=== PATIENT | male | born 1955 | race Caucasian/White ===

== ENCOUNTER 2016-08-31 02:38 | Emergency (ER) | payer OTHER ==
[2016-08-31] MEDS ORDERED: ONDANSETRON 4 MG/2 ML VIAL ONE (02:48)
[2016-08-31] MEDS ORDERED: NS 1,000 ML IV ONE ×2 (02:56→04:10)
[2016-08-31] MEDS ORDERED: HYDROmorphONE/DILAUDID 1 MG/ML SYR IVP ONE (02:56)
[2016-08-31] MEDS ORDERED: ONDANSETRON 4 MG/2 ML VIAL IVP ONE (02:56)
--- NOTE | 2016-08-31 03:28 | EDPHY ---
H & P Time Seen by Provider: 08/31/16 02:56 HPI/ROS: HPI Diarrhea, left lower abdominal pain. 60-year-old male by private vehicle with his . This patient has a history of diverticulitis. He reports onset of left lower quadrant pain, typical of his previous episodes of diverticulitis earlier yesterday while on a bike ride with his . He reports that he developed volume is, watery diarrhea. No bloody or melenic stool. He reports he has had continued pain in his left lower quadrant and has been unable to sleep. No vomiting. He is not been running a fever. He does describe being generally achy. He has no other complaints. Last meal was some oatmeal prior to coming into the emergency department. ROS: Constitutional: No fever, no chills. No weakness. Eyes: No discharge. No changes in vision. ENT: No sore throat. No nasal congestion or rhinorrhea. Respiratory: No cough. No shortness of breath. Cardiac: No chest pain, no palpitations. Gastrointestinal: As above. Genitourinary: No hematuria. No dysuria or increased frequency with urination. Musculoskeletal: No back pain. No neck pain. As above. Skin: No rashes. Neurological: No headache. No focal weakness or altered sensation. Past medical history: Diverticulitis, internal hemorrhoids. Social history: Here with his . Very physically active. No alcohol. No smoking. Physical Exam: General Appearance: Alert, no distress. This patient is responding to questions appropriately and in full sentences. This patient appears well- hydrated and well-nourished. Eyes: Pupils equal and round no pallor or injection. No lid edema, erythema or injection. Respiratory: There are no retractions, lungs are clear to auscultation with good air movement bilaterally. Cardiovascular: Regular rate and rhythm. No murmur. Gastrointestinal: Abdomen is soft with left lower lateral abdominal tenderness on palpation, no masses, bowel sounds normal. No focal tenderness at McBurney' s point. No Reese sign. Neurological: Motor sensory function is grossly intact. Cranial nerves are normal. Gait is normal. Skin: Warm and dry, no rashes. Musculoskeletal: Neck is supple and nontender. Extremities are symmetrical. All joints range without pain or impingement. Psychiatric: No agitation. No depression. Database: EKG: Imaging: CT scan of the abdomen and pelvis with IV contrast: No diverticulitis. He has diverticulosis. No evidence of abscess. No free fluid or free air. Otherwise an unremarkable study for any acute pathology. Results were discussed with staff radiologist Dr. Harris Lozano. Procedures: Emergency department course: IV placed. He was placed on a monitor. Vital signs reviewed and are normal. He is afebrile. He declines pain medication or antiemetics. He was started on IV normal saline with 1 L to be given over [address] imaging with him. He consents. 4:45 a.m., patient re-evaluated. Resting comfortably at this time. Results of his CT scan and blood work discussed with him. I discussed pain medication. At this time he prefers just Tylenol. I explained that we could not entirely rule out diverticulitis but he did not have evidence of significant disease on CT. Plan will be to send him home with a prescription for both Flagyl and ciprofloxacin. If his pain worsens or he spikes a fever he will start this medication. I discussed follow-up with his primary care physician tomorrow for re-evaluation. Return to emergency department precautions were thoroughly reviewed with him and his . All of their questions were answered. He was discharged in good condition. Differential Diagnosis: The differential diagnosis on this patient includes but is not limited to diverticulitis, colitis, irritable bowel syndrome. Volvulus, gastrointestinal bleeding, acute surgical process unlikely. This represents a partial list of diagnoses considered. These considerations are based on history, physical exam , past history, reassessment and diagnostic testing. Smoking Status: Never smoked Constitutional: Initial Vital Signs Temperature (C) 36.4 C 08/31/16 02:52 Heart Rate 81 08/31/16 02:52 Respiratory Rate 20 08/31/16 02:52 Blood Pressure 111/84 H 08/31/16 02:52 O2 Sat (%) 95 08/31/16 02:52 O2 Delivery Mode Room Air Allergies/Adverse Reactions: amoxicillin Allergy (Verified 08/31/16 02:51) cats Allergy (Uncoded 08/31/16 02:51) Home Medications: Medication Instructions Recorded Lipitor 03/11/13 Ciprofloxacin [Cipro] 500 mg PO BID #14 tab 08/31/16 metroNIDAZOLE [Flagyl 500 mg (*)] 500 mg PO TID #21 tab 08/31/16 Medical Decision Making - Data Points Laboratory Results: Laboratory Results 08/31/16 02:50 08/31/16 02:50 08/31/16 08/31/16 08/31/16 04:30 02:50 02:50 WBC 8.26 10^3/uL 10^3/uL (3.80-9.50) RBC 5.23 10^6/uL 10^6/uL (4.40-6.38) Hgb 16.2 g/dL g/dL (13.7-17.5) Hct 45.9 % % (40.0-51.0) MCV 87.8 fL fL (81.5-99.8) MCH 31.0 pg pg (27.9-34.1) MCHC 35.3 g/dL g/dL (32.4-36.7) RDW 13.1 % % (11.5-15.2) Plt Count 67 10^3/uL L 10^3/uL (150-400) MPV 10.8 fL fL (8.7-11.7) Neut % (Auto) 71.5 % % (39.3-74.2) Lymph % (Auto) 17.1 % % (15.0-45.0) [place] % (Auto) 9.6 % % (4.5-13.0) Eos % (Auto) 1.1 % % (0.6-7.6) Baso % (Auto) 0.5 % % (0.3-1.7) Nucleat RBC Rel Count 0.0 % % (0.0-0.2) Absolute Neuts (auto) 5.91 10^3/uL 10^3/uL (1.70-6.50) Absolute Lymphs (auto) 1.41 10^3/uL 10^3/uL (1.00-3.00) Absolute Monos (auto) 0.79 10^3/uL 10^3/uL (0.30-0.80) Absolute Eos (auto) 0.09 10^3/uL 10^3/uL (0.03-0.40) Absolute Basos (auto) 0.04 10^3/uL 10^3/uL (0.02-0.10) Absolute Nucleated RBC 0.00 10^3/uL 10^3/uL (0-0.01) Immature Gran % 0.2 % % (0.0-1.1) Immature Gran # 0.02 10^3/uL 10^3/uL (0.00-0.10) Sodium 137 mEq/L mEq/L (134-144) Potassium 4.1 mEq/L mEq/L (3.5-5.2) Chloride 103 mEq/L mEq/L (97-110) Carbon Dioxide 21 mEq/l L mEq/l (22-31) Anion Gap 13 mEq/L mEq/L (8-16) BUN 16 mg/dL mg/dL (7-23) Creatinine 0.8 mg/dL mg/dL (0.7-1.3) Estimated GFR > 60 Glucose 85 mg/dL mg/dL (70-100) Calcium 10.0 mg/dL mg/dL (8.5-10.4) Urine Color PALE YELLOW Urine Appearance CLEAR Urine pH 5.0 (5.0-7.5) Ur Specific [place] > 1.035 H (1.002-1.030) Urine Protein NEGATIVE (NEGATIVE) Urine Ketones 1+ H (NEGATIVE) Urine Blood NEGATIVE (NEGATIVE) Urine Nitrate NEGATIVE (NEGATIVE) Urine Bilirubin NEGATIVE (NEGATIVE) Urine Urobilinogen NEGATIVE EU EU (0.2-1.0) Ur Leukocyte Esterase NEGATIVE (NEGATIVE) Urine RBC 5-10 /hpf H /hpf (0-3) Urine WBC 1-3 /hpf /hpf (0-3) Ur Epithelial Cells TRACE /lpf /lpf (NONE-1+) Ur Culture Indicated? NOT INDICATED (NI) Urine Glucose NEGATIVE (NEGATIVE) Medications Given: Discontinued Medications Acetaminophen (Tylenol) 1,000 mg PO EDNOW ONE Stop: 08/31/16 04:30 Last Admin: 08/31/16 04:30 Dose: 1,000 mg Hydromorphone HCl (Dilaudid) 0.25 mg IVP EDNOW ONE Stop: 08/31/16 02:57 Last Admin: 08/31/16 04:58 Dose: Not Given Sodium Chloride (Ns) 1,000 mls @ 0 mls/hr IV ONCE ONE PRN Reason: Wide Open Stop: 08/31/16 02:57 Last Admin: 08/31/16 03:09 Dose: 1,000 mls Sodium Chloride (Ns) 1,000 mls @ 0 mls/hr IV ONCE ONE PRN Reason: Wide Open Stop: 08/31/16 04:11 Last Admin: 08/31/16 04:10 Dose: 1,000 mls Ondansetron HCl (Zofran) 4 mg IVP EDNOW ONE Stop: 08/31/16 02:57 Last Admin: 08/31/16 04:58 Dose: Not Given Departure - Departure Disposition: Home, Routine, Self-Care Clinical Impression: Abdominal pain, left lower quadrant, Diarrhea Condition: Good Instructions: Diverticulitis (ED), Acute Diarrhea (ED) Additional Instructions: Read and follow provided instructions. Follow-up with your primary care physician as discussed later today or tomorrow for re-evaluation. Take antibiotics as prescribed if you develop a fever and your pain if your left lower abdominal pain worsens. Return to the emergency department for worsening pain, fever, bloody stool, vomiting or other serious concerns. Referrals: GIGI WILKINS [Primary Care Provider] - As per Instructions Prescriptions: Ciprofloxacin [Cipro] 500 mg PO BID #14 tab metroNIDAZOLE [Flagyl 500 mg (*)] 500 mg PO TID #21 tab
[2016-08-31 03:29] LABS: % IMMATURE GRANULYOCYTES 0.2 % (0.0-1.1); ABSOLUTE IMMATURE GRANULOCYTES 0.02 10^3/uL (0.00-0.10); ADD DIFF? NO; ADD MORPH? NO; ADD SCAN? NO; ATYPICAL LYMPHOCYTE FLAG 0 (0-99); FRAGMENT RBC FLAG 0 (0-99); HEMATOCRIT 45.9 % (40.0-51.0); HEMOGLOBIN 16.2 g/dL (13.7-17.5); LEFT SHIFT FLG 0 (0-99); LIPEMIA HEMOLYSIS FLAG 90 (0-99); MEAN CELL HEMOGLOBIN CONCENTR. 35.3 g/dL (32.4-36.7); MEAN CELL VOLUME 87.8 fL (81.5-99.8); MEAN PLATELET VOLUME 10.8 fL (8.7-11.7); PLATELET CLUMPS FLAG 0 (0-99); PLATELET COUNT 67 10^3/uL (150-400); RED BLOOD CELL COUNT 5.23 10^6/uL (4.40-6.38); RED CELL DISTRIBUTION WIDTH 13.1 % (11.5-15.2)
[2016-08-31] MEDS ORDERED: IOPAMIDOL (ISOVUE-300) 100 ML BTL IV ONE (03:34)
[2016-08-31 03:40] LABS: ANION GAP 13 mEq/L (8-16); CARBON DIOXIDE 21 mEq/l (22-31); CHLORIDE 103 mEq/L (97-110); CREATININE 0.8 mg/dL (0.7-1.3); GLOMERULAR FILTRATION RATE > 60; GLUCOSE 85 mg/dL (70-100); POTASSIUM 4.1 mEq/L (3.5-5.2); SODIUM 137 mEq/L (134-144)
[2016-08-31] MEDS ORDERED: ACETAMINOPHEN 500 MG TAB ONE (04:05)
[2016-08-31] MEDS ORDERED: ACETAMINOPHEN 500 MG TAB PO ONE (04:29)
[2016-08-31 04:38] VITALS: PULSE 74; RESP 16; TEMP 97.9; O2SAT 92
[2016-08-31 04:49] LABS: COLOR PALE YELLOW; LEUKOCYTE ESTERASE,URINE NEGATIVE (NEGATIVE); NITRITE,URINE NEGATIVE (NEGATIVE)
[2016-08-31 04:59] VITALS: BP 119/77
== END 2016-08-31 04:59 | disposition home or self-care (01) ==
DX: R10.32 Left lower quadrant pain (principal); R19.7 Diarrhea, unspecified
CPT/HCPCS: J2405; Q9967

== ENCOUNTER 2016-08-31 11:49 | Emergency (ER) | payer OTHER ==
[2016-08-31 11:59] VITALS: TEMP 97.5
--- NOTE | 2016-08-31 12:21 | CPEKG ---
Heart Rate: 71 RR Interval: 845 P-R Interval: 172 QRSD Interval: 104 QT Interval: 408 QTC Interval: 444 P [place]: 43 QRS [place]: 22 T Wave [place]: 34 EKG Severity - NORMAL ECG - EKG Impression: SINUS RHYTHM Electronically Signed By: Deanna Gordon 31-Aug-2016 16:31:36
--- NOTE | 2016-08-31 12:29 | EDPHY ---
H & P Stated Complaint: Seen here earlier this am w/diverticulitis;sent by PCP w/ abnl ekg Time Seen by Provider: 08/31/16 12:15 HPI/ROS: CHIEF COMPLAINT: Chest pain HISTORY OF PRESENT ILLNESS: The patient is a 60 year old male who returns to the Emergency Department with chest pain. The patient was seen here last night because of sudden onset of sharp left sided abdominal pain with multiple episodes of diarrhea. This developed while he was biking yesterday afternoon. After taking Imodium and resting he continued to have abdominal pain and felt general malaise with full body aches. Last evening the patient reports feeling anterior chest pain, mid thoracic back pain, and pain in both shoulders. He continued to have intermittent abdominal discomfort. He reports he was unable to sleep secondary to the discomfort in his back. Patient came to the ED and at that time he had CT done that showed diverticulosis and incidental cholelithiasis. He received IV fluids and was discharged home with antibiotics. Patient continues to complain of achy pain and tightness in his chest, with discomfort extending into both shoulders as well as some discomfort in his mid thoracic back. His symptoms have remained constant since onset, but have improved since last night. He denies pain with deep inhalation. No shortness of breath. The patient has not started the antibiotics yet. REVIEW OF SYSTEMS: Aside from elements discussed in the HPI, a comprehensive 10-point review of systems was reviewed and is negative. PAST MEDICAL HISTORY: Diverticulitis. Patient underwent a angioplasty in 2002 clean coronaries. No history of diabetes, hypertension, smoking, or known coronary artery disease. SOCIAL HISTORY: . Nonsmoker. VITAL SIGNS: Reviewed by me GENERAL: Well-developed, well-nourished, resting comfortably in no respiratory distress. HEENT: Atraumatic. Eyes: No icterus, no injection. Mouth: moist mucous membranes. No erythema or lesions. Neck: supple with no adenopathy. LUNGS: Clear to auscultation bilaterally, no wheezes, rhonchi or rales. CARDIAC: Regular rate and rhythm, no rubs, murmurs or gallops. ABDOMEN: Soft, epigastric tenderness to deep palpation. Mild tenderness in left lower quadrant. No right upper quadrant tenderness. No guarding or rebound. No distention. BACK: No CVA tenderness. EXTREMITIES: No trauma. No edema. Range of motion is normal throughout. NEURO: Alert and oriented, grossly nonfocal. SKIN: Warm and dry, no rash. PSYCHIATRIC: Normal mentation, no agitation. Portions of this note were transcribed by a medical claims representative. I personally performed a history, physical exam, medical decision making, and confirmed accuracy of information the transcribed note. Source: Patient - Personal History Current Tetanus Diphtheria and Acellular Pertussis (TDAP): Yes - Medical/Surgical History Hx Asthma: No Hx Chronic Respiratory Disease: No Hx Diabetes: No Hx Cardiac Disease: No Hx Renal Disease: No Hx Cirrhosis: No Hx Alcoholism: No Hx HIV/AIDS: No Hx Splenectomy or Spleen Trauma: No Other PMH: diverticulitis, internal hemorrhoids, - Social History Smoking Status: Never smoked Constitutional: Initial Vital Signs Temperature (C) 36.4 C 08/31/16 11:50 Heart Rate 68 08/31/16 11:50 Respiratory Rate 16 08/31/16 11:50 Blood Pressure 110/67 08/31/16 11:50 O2 Sat (%) 97 08/31/16 11:50 O2 Delivery Mode Room Air Allergies/Adverse Reactions: amoxicillin Allergy (Verified 08/31/16 11:52) cats Allergy (Uncoded 08/31/16 02:51) Home Medications: Medication Instructions Recorded Lipitor 03/11/13 Ciprofloxacin [Cipro] 500 mg PO BID #14 tab 08/31/16 metroNIDAZOLE [Flagyl 500 mg (*)] 500 mg PO TID #21 tab 08/31/16 Medical Decision Making - Diagnostics EKG Interpretation: The 12 lead EKG was interpreted by myself. See hard copy and/or "tracemaster" electronic copy for interpretation: Sinus rhythm. EKG performed at Dr. Wilkins's office demonstrates sinus rhythm with minimal ST elevation diffusely, consistent with early repolerization. Imaging: X-ray: chest was obtained. I viewed the images myself on the PACS system. My interpretation of the images is: Normal. The radiologist interpretation is: No acute disease. I discussed the x-ray findings with the patient. ED Course/Re-evaluation: CBC and chemistry are both normal. Chest x-ray is negative for acute disease. Troponin is negative. Patient's CT scan does demonstrate cholelithiasis with no signs of cholecystitis. Labs today remain normal with a normal white count, no LFT abnormalities and no lipase elevation. Patient has no right upper quadrant discomfort. His troponin is negative despite having reports of diffuse chest discomfort as well as shoulder and back discomfort for greater than 12 hours. EKG today in the emergency department demonstrates no acute ST elevations. Patient received Prilosec in the emergency department. He states that his symptoms have improved significantly. He can take a deep breath without any discomfort. Aching in his chest and shoulders has resolved. Patient had a ddimer ordered despite no risk factors for PE. He is PERC negative. D-dimer is very minimally elevated. I discussed these results with the patient. I believe that in no further evaluation for pulmonary embolism is needed on this particular patient. He understands that if his symptoms were to worsen especially if he develops shortness of breath, worsening chest pain, pleuritic pain, swelling in his legs. He was advised to follow up with Dr. Wilkins for re-evaluation was coronary arteries as needed. Patient understands he should return to the emergency department or seek care urgently if he has worsening symptoms, fever, severe shortness of breath, palpitations, lightheadedness, dizziness, diaphoresis, fainting, nausea or vomiting, or other concerns. Differential Diagnosis: Differential diagnoses for the patient's symptom complex was considered including but not limited to acute coronary syndrome, pleuritic pain, electrolyte abnormality, cholecystitis, biliary colic, reflux. - Data Points Laboratory Results: Laboratory Results 08/31/16 13:05 08/31/16 13:05 08/31/16 08/31/16 08/31/16 14:39 13:08 13:05 WBC RBC Hgb Hct MCV MCH MCHC RDW Plt Count MPV Neut % (Auto) Lymph % (Auto) [place] % (Auto) Eos % (Auto) Baso % (Auto) Nucleat RBC Rel Count Absolute Neuts (auto) Absolute Lymphs (auto) Absolute Monos (auto) Absolute Eos (auto) Absolute Basos (auto) Absolute Nucleated RBC Immature Gran % Immature Gran # D-Dimer 0.64 ug/mLFEU H ug/mLFEU (0.00-0.50) Sodium 138 mEq/L mEq/L (134-144) Potassium 4.5 mEq/L mEq/L (3.5-5.2) Chloride 104 mEq/L mEq/L (97-110) Carbon Dioxide 24 mEq/l mEq/l (22-31) Anion Gap 10 mEq/L mEq/L (8-16) BUN 10 mg/dL mg/dL (7-23) Creatinine 0.7 mg/dL mg/dL (0.7-1.3) Estimated GFR > 60 Glucose 88 mg/dL mg/dL (70-100) Calcium 9.7 mg/dL mg/dL (8.5-10.4) Total Bilirubin 1.2 mg/dL mg/dL (0.1-1.4) Conjugated Bilirubin 0.3 mg/dL mg/dL (0.0-0.5) Unconjugated Bilirubin 0.9 mg/dL mg/dL (0.0-1.1) AST 31 IU/L IU/L (17-59) ALT 43 IU/L IU/L (21-72) Alkaline Phosphatase 61 IU/L IU/L (38-126) Troponin I < 0.012 ng/mL ng/mL (0-0.034) Total Protein 7.4 g/dL g/dL (6.3-8.2) Albumin 4.4 g/dL g/dL (3.5-5.0) Lipase 64.0 IU/L IU/L (23-300) Influenza A & B (PCR) Pending 08/31/16 13:05 WBC 6.59 10^3/uL 10^3/uL (3.80-9.50) RBC 4.98 10^6/uL 10^6/uL (4.40-6.38) Hgb 15.5 g/dL g/dL (13.7-17.5) Hct 44.7 % % (40.0-51.0) MCV 89.8 fL fL (81.5-99.8) MCH 31.1 pg pg (27.9-34.1) MCHC 34.7 g/dL g/dL (32.4-36.7) RDW 13.4 % % (11.5-15.2) Plt Count 96 10^3/uL L 10^3/uL (150-400) MPV 10.5 fL fL (8.7-11.7) Neut % (Auto) 64.6 % % (39.3-74.2) Lymph % (Auto) 20.8 % % (15.0-45.0) [place] % (Auto) 12.9 % % (4.5-13.0) Eos % (Auto) 0.9 % % (0.6-7.6) Baso % (Auto) 0.5 % % (0.3-1.7) Nucleat RBC Rel Count 0.0 % % (0.0-0.2) Absolute Neuts (auto) 4.26 10^3/uL 10^3/uL (1.70-6.50) Absolute Lymphs (auto) 1.37 10^3/uL 10^3/uL (1.00-3.00) Absolute Monos (auto) 0.85 10^3/uL H 10^3/uL (0.30-0.80) Absolute Eos (auto) 0.06 10^3/uL 10^3/uL (0.03-0.40) Absolute Basos (auto) 0.03 10^3/uL 10^3/uL (0.02-0.10) Absolute Nucleated RBC 0.00 10^3/uL 10^3/uL (0-0.01) Immature Gran % 0.3 % % (0.0-1.1) Immature Gran # 0.02 10^3/uL 10^3/uL (0.00-0.10) D-Dimer Sodium Potassium Chloride Carbon Dioxide Anion Gap BUN Creatinine Estimated GFR Glucose Calcium Total Bilirubin Conjugated Bilirubin Unconjugated Bilirubin AST ALT Alkaline Phosphatase Troponin I Total Protein Albumin Lipase Influenza A & B (PCR) Medications Given: Discontinued Medications Pantoprazole Sodium (Protonix) 40 mg PO EDNOW ONE Stop: 08/31/16 14:38 Last Admin: 08/31/16 14:46 Dose: 40 mg Departure - Departure Disposition: Home, Routine, Self-Care Clinical Impression: Abdominal discomfort in left lower quadrant, Chest discomfort, possible gerd Back pain Qualifiers: Back pain location: thoracic back pain Chronicity: acute Back pain laterality: midline Qualified Code(s): M54.6 - Pain in thoracic spine Condition: Good Instructions: Gastroesophageal Reflux Disease (ED), Abdominal Pain (ED), Thoracic Pain (ED), Epigastric Pain (ED) Additional Instructions: I see no evidence of acute coronary artery event or acute cardiac event causing today's symptoms. However, you should follow up with Dr. Wilkins to undergo stress testing as soon as possible. If your symptoms of epigastric discomfort and anterior chest discomfort and back comfort discomfort continue, I would consider beginning a 2 week course of Prilosec. Return to the emergency department or seek care urgently if you develop severe anterior chest discomfort, lightheadedness, dizziness, palpitations, fainting, pain radiating into the jaw or neck shortness of breath, or other concerns. Referrals: GIGI WILKINS [Primary Care Provider] - As per Instructions
[2016-08-31 13:22] LABS: % IMMATURE GRANULYOCYTES 0.3 % (0.0-1.1); ABSOLUTE IMMATURE GRANULOCYTES 0.02 10^3/uL (0.00-0.10); ADD DIFF? NO; ADD MORPH? NO; ADD SCAN? NO; ATYPICAL LYMPHOCYTE FLAG 10 (0-99); FRAGMENT RBC FLAG 0 (0-99); HEMATOCRIT 44.7 % (40.0-51.0); HEMOGLOBIN 15.5 g/dL (13.7-17.5); LEFT SHIFT FLG 0 (0-99); LIPEMIA HEMOLYSIS FLAG 90 (0-99); MEAN CELL HEMOGLOBIN 31.1 pg (27.9-34.1); MEAN CELL HEMOGLOBIN CONCENTR. 34.7 g/dL (32.4-36.7); MEAN CELL VOLUME 89.8 fL (81.5-99.8); MEAN PLATELET VOLUME 10.5 fL (8.7-11.7); PLATELET CLUMPS FLAG 0 (0-99); PLATELET COUNT 96 10^3/uL (150-400); RED BLOOD CELL COUNT 4.98 10^6/uL (4.40-6.38); RED CELL DISTRIBUTION WIDTH 13.4 % (11.5-15.2)
[2016-08-31 14:01] LABS: ALANINE AMINOTRANSFERASE 43 IU/L (21-72); ALBUMIN 4.4 g/dL (3.5-5.0); ALKALINE PHOSPHATASE 61 IU/L (38-126); ANION GAP 10 mEq/L (8-16); ASPARTATE AMINOTRANSFERASE 31 IU/L (17-59); BILIRUBIN,TOTAL 1.2 mg/dL (0.1-1.4); BILIRUBIN-CONJUGATED 0.3 mg/dL (0.0-0.5); BILIRUBIN-UNCONJUGATED 0.9 mg/dL (0.0-1.1); CALCIUM 9.7 mg/dL (8.5-10.4); CARBON DIOXIDE 24 mEq/l (22-31); CHLORIDE 104 mEq/L (97-110); CREATININE 0.7 mg/dL (0.7-1.3); GLOMERULAR FILTRATION RATE > 60; GLUCOSE 88 mg/dL (70-100); POTASSIUM 4.5 mEq/L (3.5-5.2); SODIUM 138 mEq/L (134-144); TOTAL PROTEIN 7.4 g/dL (6.3-8.2)
[2016-08-31 14:11] LABS: TROPONIN I < 0.012 ng/mL (0-0.034)
[2016-08-31] MEDS ORDERED: PANTOPRAZOLE SODIUM 40 MG TAB PO ONE (14:37)
[2016-08-31 15:22] VITALS: BP 111/62; PULSE 80; RESP 19; O2SAT 92
== END 2016-08-31 15:22 | disposition home or self-care (01) ==
DX: R07.89 Other chest pain (principal); R10.32 Left lower quadrant pain

== ENCOUNTER 2016-11-29 21:41 | Emergency (ER) | payer OTHER ==
--- NOTE | 2016-11-29 22:43 | EDPHY ---
H & P Stated Complaint: fever; had band litigation procedure 11/27/16 Time Seen by Provider: 11/29/16 22:13 HPI/ROS: CHIEF COMPLAINT: Fever HISTORY OF PRESENT ILLNESS: The patient is a 61-year-old man who is 3 days status post two internal hemorrhoid ligations by Dr. Roc Miller at [facility]. He states that he had been feeling great and today went for a bike ride. About 2 hours later he began to feel fatigued and fevers. He states that typically his temperature is low but this evening it got up to 99.9. At that point they decided to come in. He does not have any obvious sources for fever. His bowel movements have been slightly painful but not extremely. He does not have any rectal tenderness or fluctuance. No rashes. No upper respiratory symptoms. No abdominal or pulmonary symptoms. No urinary symptoms. REVIEW OF SYSTEMS: Constitutional: denies: chills, fever, recent illness, recent injury EENTM: denies: blurred vision, double vision, nose congestion Respiratory: denies: cough, shortness of breath Cardiac: denies: chest pain, irregular heart rate, lightheadedness, palpitations Gastrointestinal/Abdominal: denies: abdominal pain, diarrhea, nausea, vomiting, blood streaked stools Genitourinary: denies: dysuria, frequency, hematuria, pain Musculoskeletal: denies: joint pain, muscle pain Skin: denies: lesions, rash, jaundice, bruising Neurological: denies: headache, numbness, paresthesia, tingling, dizziness, weakness Hematologic/Lymphatic: denies: blood clots, easy bleeding, easy bruising Immunologic/allergic: denies: HIV/AIDS, transplant EXAM: GENERAL: Well-appearing, well-nourished and in no acute distress. HEAD: Atraumatic, normocephalic. EYES: Pupils equal round and reactive to light, extraocular movements intact, sclera anicteric, conjunctiva are normal. ENT: TMs normal, nares patent, oropharynx clear without exudates. Moist mucous membranes. NECK: Normal range of motion, supple without lymphadenopathy or JVD. LUNGS: Breath sounds clear to auscultation bilaterally and equal. No wheezes rales or rhonchi. HEART: Regular rate and rhythm without murmurs, rubs or gallops. ABDOMEN: Soft, nontender, normoactive bowel sounds. No guarding, no rebound. No masses appreciated. : Rectal exam performed with proctoscope. Internal hemorrhoid visualized. Small amount of dark blood. Exam not painful. No surrounding fluctuance or erythema. BACK: No CVA tenderness, no spinal tenderness, step-offs or deformities EXTREMITIES: Normal range of motion, no pitting or edema. No clubbing or cyanosis. NEUROLOGICAL: Cranial nerves II through XII grossly intact. Normal speech, normal gait. 5/5 strength, normal movement in all extremities, normal sensation PSYCH: Normal mood, normal affect. SKIN: Warm, dry, normal turgor, no visible rashes or lesions. Source: Patient Exam Limitations: No limitations - Personal History Current Tetanus/Diphtheria Vaccine: Yes - Medical/Surgical History Hx Asthma: No Hx Chronic Respiratory Disease: No Hx Diabetes: No Hx Cardiac Disease: No Hx Renal Disease: No Hx Cirrhosis: No Hx Alcoholism: No Hx HIV/AIDS: No Hx Splenectomy or Spleen Trauma: No Other PMH: PMHx: diverticulitis, internal hemorrhoids. PSHx: band litigation, R hand, R knee, bilat foot - Family History Significant Family History: No pertinent family hx - Social History Smoking Status: Never smoked Alcohol Use: Sober Drug Use: None Constitutional: Initial Vital Signs Temperature (C) 37.3 C 11/29/16 21:50 Heart Rate 119 H 11/29/16 21:50 Respiratory Rate 14 11/29/16 21:50 Blood Pressure 126/80 H 11/29/16 21:50 O2 Sat (%) 93 11/29/16 21:50 O2 Delivery Mode Room Air Allergies/Adverse Reactions: amoxicillin Allergy (Verified 08/31/16 11:52) cats Allergy (Uncoded 08/31/16 02:51) Home Medications: Medication Instructions Recorded NK [No Known Home Meds] 11/29/16 Medical Decision Making ED Course/Re-evaluation: 11:20 p.m. I spoke with Dr. Ronny Casey. We are unable to contact Dr. Miller. The patient is afebrile here. He has a nontender rectal exam and no obvious sign of infection. This is all reassuring. Dr. Casey recommended the patient follow up with his primary surgeon tomorrow or Wednesday. The family and patient are happy with this plan and declines any lab work or testing at this time. We discussed indications for returning to the emergency department. Differential Diagnosis: Partial list of the Differential diagnosis considered include but were not limited to; fever, bacteremia, hemorrhoid and although unlikely based on the history and physical exam, I also considered sepsis, prostatitis, urinary tract infection, abscess. I discussed these differential diagnoses and the plan with the patient as well as the usual and expected course. The patient understands that the diagnosis is provisional and that in medicine we are not always correct and that further workup is often warranted. Usual and customary warnings were given. All of the patient's questions were answered. The patient was instructed to return to the emergency department should the symptoms at all worsen or return, otherwise to followup with the physician as we discussed. Departure - Departure Disposition: Home, Routine, Self-Care Clinical Impression: Fever Qualifiers: Fever type: unspecified Qualified Code(s): R50.9 - Fever, unspecified Condition: Fair Instructions: Fever in Adults (ED) Referrals: GIGI WILKINS [Primary Care Provider] - As per Instructions
[2016-11-29 23:38] VITALS: BP 116/75; PULSE 81; RESP 16; TEMP 100.2; O2SAT 92
== END 2016-11-29 23:38 | disposition home or self-care (01) ==
DX: R50.9 Fever, unspecified (principal)